=== PATIENT | female | born 1965 | race African-American/Black ===

== ENCOUNTER 2018-02-04 17:11 | Emergency (ER) | payer OTHER ==
[~2018-02-04] VITALS: Ht 166.4 cm; Wt 98.0 kg
[2018-02-04] MEDS ORDERED: GABAPENTIN300 MG ORAL (17:19)
[2018-02-04 17:24] VITALS: BP 168/86
--- NOTE | 2018-02-04 18:19 | Emergency Room Report ---
History of Present Illness General Chief Complaint: Headache Source: Patient Present Illness HPI 52 YO Female presents to the ED c/O worsening of her symptoms of dizziness, imbalance, and 10/10 in severity frontal SEBASTIAN. Pt. reports blurry vision as well. pt. states progressive over 1 day onset on Thursday, was evaluated at ED and discharged with dx of URI. pt. reports imaging was not done, just labs and UA. pt. reports she has been falling regularly which is new for her. she also reports some incontinence. Denies nausea or vomiting. She denies back pain, fevers or chills. Pt. denies changes in dizziness associated with movements of the head. denies auditory changes. denies sudden onset of SEBASTIAN. Denies CP or palpitations. Pmhx: HTN, head injury in 2013, Seizure history - last sz in 2015. pt. has hx of glaucoma-not rx'd meds. Allergies: Coded Allergies: NAPROXEN (Verified Allergy, Unknown, swelling, 02/04/18) Patient History Past Medical History: see triage record Past Surgical History: none Pertinent Family History: none Last Menstrual Period: 4 yrs ago Now: No Reviewed Nursing Documentation: PMH: Agreed; PSxH: Agreed Nursing Documentation-PMH Past Medical History: No History, Except For Hx Asthma: Yes Hx Seizures: Yes Review of Systems All Other Systems: negative except mentioned in HPI Physical Exam Vital Signs Date Time Temp Pulse Resp B/P (MAP) Pulse Ox O2 Delivery O2 Flow Rate FiO2 02/04/18 17:14 98.1 72 18 168/86 100 Room Air Sp02 EP Interpretation: reviewed, normal General Appearance: no apparent distress, alert, GCS 15, non-toxic Head: normocephalic, atraumatic Eyes: bilateral eye normal inspection, bilateral eye PERRL, bilateral eye EOMI , bilateral eye other - VA Right eye 20/50, Left eye 20/70, both: 20/40 - Paul pressures : ENT: hearing grossly normal, normal voice Neck: full range of motion Respiratory: chest non-tender, lungs clear, normal breath sounds, speaking full sentences Cardiovascular #1: regular rate, rhythm Gastrointestinal: non tender Genitourinary: normal inspection Musculoskeletal: back normal, normal range of motion, non-tender Neurologic: alert, oriented x3, responsive, motor strength/tone normal, sensory intact, speech normal, no pronator, other - imbalanced gait. non-toxic in appearance, Ataxia - Ataxia - finger to nose is abnormal with the left hand. negative Romberg, no facial droop or arm drift. equal motorcycle repairer , grossly normal, oriented Psychiatric: judgement/insight normal Skin: normal color, no rash, warm/dry, well hydrated Medical Decision Making PA Attestation Dr. Zavala is my supervising Physician whom patient management has been discussed with. Diagnostic Impression: Primary Impression: Headache Qualified Codes: R51 - Headache Additional Impressions: Ataxia Unsteady gait ER Course 52 YO Female presents to the ED c/O worsening of her symptoms of dizziness, imbalance, and 10/10 in severity frontal SEBASTIAN. Pt. reports blurry vision as well. pt. states progressive over 1 day onset on Thursday, was evaluated at ED and discharged with dx of URI. pt. reports imaging was not done, just labs and UA. pt. reports she has been falling regularly which is new for her. she also reports some incontinence. Denies nausea or vomiting. She denies back pain, fevers or chills. Pt. denies changes in dizziness associated with movements of the head. denies auditory changes. denies sudden onset of SEBASTIAN. Denies CP or palpitations. Pmhx: HTN, head injury in 2013, Seizure history - last sz in 2016. pt. has hx of glaucoma-not rx'd meds. Ddx considered but are not limited to Mnire's, BPPV, labrinitis, cerebellar stroke, hypovolemia, cardiac cause, Atypical migraine, glaucoma just to name a few. . Vital signs: are WNL, pt. is afebrile H&PE are most consistent with : non-toxic in appearance, Ataxia - finger to nose is abnormal with the left hand. negative Romberg, no facial droop or arm drift. equal motorcycle repairer strength. - PAUL PEN PRESSURES: Right eye: 22,17 Left Eye: 30,22, 27 mmhg. ORDERS: -CT head no contrast- negative for ICH, EDEMA, or mass -CMP: Unremarkable -UA: unremarkable -EK NSR -UDS: pending ED INTERVENTIONS: Tylenol PO -Reglan IV -NS fluids DISPOSITION: at this time pt. will be admitted to Dr. Salmeron for Ataxia Dr. Salmeron agreed to admit the pt. and to continue pt. care management. Labs Test 02/04/18 18:05 White Blood Count 11.9 K/UL (4.8-10.8) Red Blood Count 4.38 M/UL (4.20-5.40) Hemoglobin 12.9 G/DL (12.0-16.0) Hematocrit 38.5 % (37.0-47.0) Mean Corpuscular Volume 88 FL (80-99) Mean Corpuscular Hemoglobin 29.5 PG (27.0-31.0) Mean Corpuscular Hemoglobin Concent 33.5 G/DL (32.0-36.0) Red Cell Distribution Width 12.3 % (11.6-14.8) Platelet Count 260 K/UL (150-450) Mean Platelet Volume 8.5 FL (6.5-10.1) Neutrophils (%) (Auto) 77.0 % (45.0-75.0) Lymphocytes (%) (Auto) 15.6 % (20.0-45.0) Monocytes (%) (Auto) 6.7 % (1.0-10.0) Eosinophils (%) (Auto) 0.0 % (0.0-3.0) Basophils (%) (Auto) 0.8 % (0.0-2.0) Urine Color Pale yellow Urine Appearance Clear Urine pH 7 (4.5-8.0) Urine Specific [place] 1.005 (1.005-1.035) Urine Protein Negative (NEGATIVE) Urine Glucose (UA) Negative (NEGATIVE) Urine Ketones Negative (NEGATIVE) Urine Blood Negative (NEGATIVE) Urine Nitrite Negative (NEGATIVE) Urine Bilirubin Negative (NEGATIVE) Urine Urobilinogen Normal MG/DL (0.0-1.0) Urine Leukocyte Esterase Negative (NEGATIVE) Sodium Level 141 MMOL/L (136-145) Potassium Level 3.8 MMOL/L (3.5-5.1) Chloride Level 107 MMOL/L (98-107) Carbon Dioxide Level 23 MMOL/L (21-32) Anion Gap 11 mmol/L (5-15) Blood Urea Nitrogen 14 mg/dL (7-18) Creatinine 1.2 MG/DL (0.55-1.30) Estimat Glomerular Filtration Rate 47.3 mL/min (>60) Glucose Level 108 MG/DL (74-106) Calcium Level 8.8 MG/DL (8.5-10.1) Total Bilirubin 0.1 MG/DL (0.2-1.0) Aspartate Amino Transf (AST/SGOT) 14 U/L (15-37) Alanine Aminotransferase (ALT/SGPT) 20 U/L (12-78) Alkaline Phosphatase 96 U/L (46-116) Total Protein 7.6 G/DL (6.4-8.2) Albumin 3.9 G/DL (3.4-5.0) Globulin 3.7 g/dL Albumin/Globulin Ratio 1.1 (1.0-2.7) EKG Diagnostic Results EP Interpretation: Dr. Zavala Rate: normal - 64 Rhythm: NSR ST Segments: no acute changes Other Impression isolated T wave inversion in V2 ASA given to the pt in ED: No PA Scribe Text This Interpretation was scribed by JAIME Glynn. Last Vital Signs Date Time Temp Pulse Resp B/P (MAP) Pulse Ox O2 Delivery O2 Flow Rate FiO2 02/04/18 17:14 98.1 72 18 168/86 100 Room Air Disposition: ADMITTED INPATIENT Condition: Effie Pritchard Feb 04, 2018 18:19
[2018-02-04 18:23] LABS: APPEARANCE,URINE CLEAR; BILIRUBIN, URINE NEGATIVE (NEGATIVE); COLOR,URINE PALE YELLOW; GLUCOSE, URINE (UA) NEGATIVE (NEGATIVE); KETONES,URINE NEGATIVE (NEGATIVE); LEUKOCYTE ESTERASE ,URINE NEGATIVE (NEGATIVE); NITRITE,URINE NEGATIVE (NEGATIVE); PH,URINE 7 (4.5-8.0); PROTEIN,URINE NEGATIVE (NEGATIVE); UROBILINOGEN,URINE NORMAL MG/DL (0.0-1.0)
[2018-02-04 18:30] LABS: ANION GAP 11 mmol/L (5-15); BLOOD UREA NITROGEN 14 mg/dL (7-18); CALCIUM 8.8 MG/DL (8.5-10.1); CARBON DIOXIDE 23 MMOL/L (21-32); CHLORIDE 107 MMOL/L (98-107); CREATININE 1.2 MG/DL (0.55-1.30); POTASSIUM 3.8 MMOL/L (3.5-5.1); SODIUM 141 MMOL/L (136-145)
[2018-02-04 18:31] LABS: BASOPHILS % (AUTO) 0.8 % (0.0-2.0); HEMATOCRIT 38.5 % (37.0-47.0); HEMOGLOBIN 12.9 G/DL (12.0-16.0); LYMPHOCYTES % (AUTO) 15.6 % (20.0-45.0); MEAN CORPUSCULAR VOLUME 88 FL (80-99); MONOCYTES % (AUTO) 6.7 % (1.0-10.0); PLATELET COUNT 260 K/UL (150-450); RED BLOOD COUNT 4.38 M/UL (4.20-5.40); RED CELL DISTRIBUTION WIDTH 12.3 % (11.6-14.8); WHITE BLOOD COUNT 11.9 K/UL (4.8-10.8)
[2018-02-04 18:35] LABS: ALANINE AMINOTRANSFERASE 20 U/L (12-78); ALBUMIN 3.9 G/DL (3.4-5.0); ALBUMIN/GLOBULIN RATIO 1.1 (1.0-2.7); ALKALINE PHOSPHATASE 96 U/L (46-116); ASPARTATE AMINO TRANSFERASE 14 U/L (15-37); BILIRUBIN,TOTAL 0.1 MG/DL (0.2-1.0)
[2018-02-04] MEDS ORDERED: Metoclopramide 10mg/2ml Inj IVP ONE (19:00)
[2018-02-04] MEDS ORDERED: Tetracaine 0.5% Opth 4ml Soln RIGHT EYE ONE (19:30)
[2018-02-04] MEDS ORDERED: Norco 5mg/325mg tab ORAL ONE (20:30)
[2018-02-04 21:00] VITALS: BP 149/91
[2018-02-04 22:31] VITALS: BP 149/91
--- NOTE | 2018-02-05 08:44 | Diagnostic Imaging Report ---
Indications: Headache, blurred vision, dizziness, 7 days Technique: Spiral acquisitions obtained through the brain. Angled axial and coronal 5 x 5 mm slices were reconstructed. Total dose length product 1295.15 mGycm. CTDI vol(s) 70.38 mGy. Dose reduction achieved using automated exposure control Comparison: None. Findings: Ventricles and extra axial CSF spaces are within normal limits for age. Normal lucero-white differentiation. No acute intracranial hemorrhage or edema, mass effect, nor midline shift. Questionable empty sella noted. Visualized orbits are unremarkable. There is sphenoid sinus disease on the left. The mastoids are clear. The calvarium is intact. Impression: Negative for acute intracranial bleed or mass effect Mild sphenoid sinus disease This agrees with the preliminary interpretation provided overnight by Dr. Palomino The CT scanner at [facility] is accredited by the [employer] [place] and the scans are performed using protocols designed to limit radiation exposure to as low as reasonably achievable to attain images of sufficient resolution adequate for diagnostic evaluation.
== END 2018-02-04 21:00 | disposition other institution (70) ==
LOC: EMR 18:37
DX: R51 Headache (principal); R27.0 Ataxia, unspecified; R26.9 Unspecified abnormalities of gait and mobility; J45.909 Unspecified asthma, uncomplicated; Z86.69 Personal history of other diseases of the nervous system and sense organs
CPT/HCPCS: 36415; 70450; 80053; 80307; 81003; 85025; 93005; 96361; 96374; 99285; J2765